=== PATIENT | male | born 1990 | race Caucasian/White ===

== ENCOUNTER 2017-07-13 01:09 | Emergency (ER) | payer SELFPAY ==
[~2017-07-13] VITALS: Ht 180.3 cm; Wt 72.6 kg
[2017-07-13 01:09] VITALS: BP 146/84
== END 2017-07-13 03:19 | disposition home or self-care (01) ==
LOC: ER 01:11
DX: S20.211A Contusion of right front wall of thorax, initial encounter (principal); R25.2 Cramp and spasm; E11.9 Type 2 diabetes mellitus without complications; F41.9 Anxiety disorder, unspecified; G43.909 Migraine, unspecified, not intractable, without status migrainosus; Z79.4 Long term (current) use of insulin; V49.49XA Driver injured in collision with other motor vehicles in traffic accident, initial encounter; Y93.89 Activity, other specified; Y92.89 Other specified places as the place of occurrence of the external cause; Y99.9 Unspecified external cause status
CPT/HCPCS: 71100; 72040; 96372; 99284; A4606; Z7610